=== PATIENT | female | born 1945 | race Caucasian/White ===

== ENCOUNTER 2018-07-01 12:03 | Emergency (ER) | payer MEDICARE, OTHER ==
[~2018-07-01] VITALS: Ht 160 cm; Wt 63.6 kg
[~2018-07-01 12:03] MED LIST: ATOR20TA66 PO; EFF25T PO; LISI-600 PO; LUBI8CAP PO; ONDA4TAB6 PO; PANT40TA4 PO
[2018-07-01 12:36] LABS: BASOPHILS % (AUTO) 0.3 % (0-1); EOSINOPHILS % (AUTO) 0.2 % (0-6); HEMOGLOBIN 14.3 g/dl (12.0-16.0); LYMPHOCYTES # (AUTO) 1.6 X10'3 (1.1-4.8); LYMPHOCYTES % (AUTO) 15.8 % (21-51); MEAN CORPUSCULAR HEMOGLOBIN 29.6 PG (27.0-31.0); MEAN CORPUSCULAR HGB CONC 33.2 % (33.0-36.5); MEAN CORPUSCULAR VOLUME 89.1 FL (78-98); MEAN PLATELET VOLUME 7.6 FL (7.4-10.4); MONOCYTES # (AUTO) 0.6 X10'3 (0-0.9); MONOCYTES % (AUTO) 6.1 % (2-12); NEUTROPHILS % (AUTO) 77.6 % (42-75); PLATELET COUNT 265 X10'3 (140-440); RED BLOOD COUNT 4.82 X10'6 (4.20-5.60); RED CELL DISTRIBUTION WIDTH 13.1 % (11.5-14.5); WHITE BLOOD COUNT 10.4 X10'3 (4.5-11.0)
[2018-07-01 12:47] LABS: PROTHROMBIN TIME 10.1 SECONDS (9.0-12.0)
[2018-07-01 12:59] LABS: ALANINE AMINOTRANSFERASE 22 U/L (12-78); ALKALINE PHOSPHATASE 89 IU/L (46-116); AMYLASE 76 U/L (25-115); ANION GAP 11 (8-16); ASPARTATE AMINO TRANSFERASE 20 U/L (10-37); BILIRUBIN,TOTAL 0.3 MG/DL (0.1-1.0); BLOOD UREA NITROGEN 24 MG/DL (7-18); BUN/CREATININE RATIO 21.6 (6.6-38.0); CALCIUM 9.8 MG/DL (8.5-10.1); CHLORIDE 103 MMOL/L (99-107); CREATININE 1.11 MG/DL (0.40-0.90); GLUCOSE 124 MG/DL (70-104); LIPASE 285 U/L (73-393); POTASSIUM 4.6 MMOL/L (3.5-5.1); SODIUM 140 MMOL/L (135-145); TOTAL CARBON DIOXIDE 26.4 MMOL/L (24-32); TOTAL PROTEIN 7.9 G/DL (6.4-8.2); eGFR 48 ML/MIN
[2018-07-01 14:31] LABS: CLARITY,URINE CLEAR (Clear); COLOR,URINE YELLOW (Yellow); GLUCOSE, URINE NEGATIVE (Neg); KETONES,URINE 15 mg/dl (Neg); LEUKOCYTE ESTERASE ,URINE NEGATIVE (Neg); NITRITES, URINE NEGATIVE (Neg); OCCULT BLOOD,URINE NEGATIVE (Neg); PH,URINE 5.5 (4.8-8.0); PROTEIN,URINE NEGATIVE (Neg); UROBILINOGEN,URINE 0.2 E.U/dL (0.2-1.0)
[2018-07-01 14:32] LABS: UA COLLECTION TYPE CLN CATCH MIDSTREAM
[2018-07-01] MEDS ORDERED: ondansetron 4mg rapidly disintigrating tab PO ONE (14:50)
[2018-07-01] MEDS ORDERED: OMEP40CA37 PO (15:29)
[2018-07-01 15:42] VITALS: BP 141/74
[2018-07-01] MEDS ORDERED: ONDA8TAB6 PO (15:44)
== END 2018-07-01 15:50 | disposition home or self-care (01) ==
LOC: ER 12:04
DX: R10.84 Generalized abdominal pain (principal); R10.13 Epigastric pain; R11.0 Nausea; E78.00 Pure hypercholesterolemia, unspecified; G43.909 Migraine, unspecified, not intractable, without status migrainosus; Z88.0 Allergy status to penicillin; Z88.1 Allergy status to other antibiotic agents; Z88.6 Allergy status to analgesic agent; Z79.899 Other long term (current) drug therapy; Z90.49 Acquired absence of other specified parts of digestive tract; Z90.710 Acquired absence of both cervix and uterus; Z87.19 Personal history of other diseases of the digestive system
CPT/HCPCS: 36415; 74176; 80053; 81003; 82150; 83690; 84484; 85025; 85610; 93005; 99284

== ENCOUNTER 2022-02-16 10:30 | Outpatient (CLI) | payer MEDICARE, OTHER ==
[~2022-02-16 10:30] MED LIST changes: +BARIUM SULFATE 340 ML SUSP.RECON***PROCEDURE AREA ONLY**DONT ENTER PO ONE; -EFF25T PO; -LISI-600 PO; +LISI20TA28 PO; +ONDA8TAB6 PO; -PANT40TA4 PO; +PANT40TA54 PO; +VENL25TA48 PO
== END 2022-02-16 23:59 | disposition home or self-care (01) ==
LOC: RAD 10:30
PROVIDERS: ATTEND Nurse Practitioner
DX: K29.50 Unspecified chronic gastritis without bleeding (principal)
CPT/HCPCS: 74220

== ENCOUNTER 2023-07-10 20:56 | Emergency (ER) | payer MEDICARE, OTHER ==
[~2023-07-10] VITALS: Ht 160 cm; Wt 55.0 kg
[~2023-07-10 20:56] MED LIST changes: -BARIUM SULFATE 340 ML SUSP.RECON***PROCEDURE AREA ONLY**DONT ENTER PO ONE
[2023-07-10 22:15] LABS: BASOPHILS % (AUTO) 0.6 % (0-1); EOSINOPHILS % (AUTO) 0.2 % (0-6); HEMATOCRIT 35.1 % (35.0-45.0); HEMOGLOBIN 11.7 g/dl (12.0-16.0); LYMPHOCYTES # (AUTO) 1.2 X10'3 (1.1-4.8); LYMPHOCYTES % (AUTO) 16.1 % (21-51); MEAN CORPUSCULAR HEMOGLOBIN 30.2 PG (27.0-31.0); MEAN CORPUSCULAR HGB CONC 33.3 g/dL (33.0-36.5); MEAN CORPUSCULAR VOLUME 90.7 FL (78-98); MEAN PLATELET VOLUME 7.4 FL (7.4-10.4); MONOCYTES # (AUTO) 0.8 X10'3 (0-0.9); MONOCYTES % (AUTO) 10.4 % (2-12); NEUTROPHILS # (AUTO) 5.3 X10'3 (1.8-7.7); NEUTROPHILS % (AUTO) 72.7 % (42-75); PLATELET COUNT 185 X10'3 (140-440); RED BLOOD COUNT 3.87 X10'6 (4.20-5.60); WHITE BLOOD COUNT 7.3 X10'3 (4.5-11.0)
[2023-07-10 22:34] LABS: BILIRUBIN,URINE NEGATIVE (Neg); CLARITY,URINE CLEAR (Clear); COLOR,URINE YELLOW (Yellow); GLUCOSE, URINE NEGATIVE (Neg); KETONES,URINE 15 mg/dl (Neg); LEUKOCYTE ESTERASE ,URINE NEGATIVE (Neg); NITRITES, URINE NEGATIVE (Neg); OCCULT BLOOD,URINE NEGATIVE (Neg); PROTEIN,URINE NEGATIVE (Neg); UROBILINOGEN,URINE 0.2 E.U/dL (0.2-1.0)
[2023-07-10 22:34] LABS: ALANINE AMINOTRANSFERASE 19 U/L (12-78); ALBUMIN 3.8 G/DL (3.4-5.0); ALBUMIN/GLOBULIN RATIO 1.2 (1.1-1.5); ALKALINE PHOSPHATASE 63 IU/L (46-116); ANION GAP 10 (8-16); ASPARTATE AMINO TRANSFERASE 22 U/L (10-37); BILIRUBIN,TOTAL 0.4 MG/DL (0.1-1.0); BLOOD UREA NITROGEN 22 MG/DL (7-18); BUN/CREATININE RATIO 17.5 (10.0-20.0); CALCIUM 9.5 MG/DL (8.5-10.1); CHLORIDE 103 MMOL/L (99-107); CREATININE 1.26 MG/DL (0.40-0.90); GLUCOSE 116 MG/DL (70-104); POTASSIUM 4.1 MMOL/L (3.5-5.1); SODIUM 137 MMOL/L (135-145); TOTAL CARBON DIOXIDE 23.7 MMOL/L (24-32); TOTAL PROTEIN 7.1 G/DL (6.4-8.2); eCRCL 30 ML/MIN; eGFR 41 ML/MIN
[2023-07-10 22:37] LABS: UA COLLECTION TYPE CLN CATCH MIDSTREAM
[2023-07-10 22:44] LABS: LIPASE 63 U/L (16-77); PRO BRAIN NATRIURETIC PEPTIDE 363 PG/ML (0-450)
[2023-07-11] MEDS ORDERED: morphine 4 MG/ML inj SYRINge IV PRN
[2023-07-11] MEDS ORDERED: normal saline 1000ML IV soln IVB ONE
[2023-07-11] MEDS ORDERED: morphine 4 MG/ML inj SYRINge IV ONE (02:00)
[2023-07-11] MEDS ORDERED: ondansetron/PF 4mg/2ml inj IV ONE ×2 (02:00)
[2023-07-11] MEDS ORDERED: POLY17PO10 PO (04:30)
[2023-07-11 05:01] VITALS: BP 114/52; PULSE 58; RESP 16; TEMP 98.2; O2SAT 98
== END 2023-07-11 05:03 | disposition home or self-care (01) ==
LOC: ER 20:56
DX: K59.00 Constipation, unspecified (principal); E86.0 Dehydration
CPT/HCPCS: 36415; 71045; 74176; 80053; 81003; 83690; 83880; 84484; 85025; 93005; 96374; 96375; 99285; J2270; J2405; J7030

== ENCOUNTER 2023-08-07 19:44 | Inpatient (IN) | payer MEDICARE, OTHER ==
[~2023-08-07] VITALS: Ht 160 cm; Wt 53.5 kg
[2023-08-07 20:14] LABS: BASOPHILS % (AUTO) 0.3 % (0-1); EOSINOPHILS % (AUTO) 0.1 % (0-6); HEMATOCRIT 33.7 % (35.0-45.0); HEMOGLOBIN 11.6 g/dl (12.0-16.0); LYMPHOCYTES # (AUTO) 1.7 X10'3 (1.1-4.8); LYMPHOCYTES % (AUTO) 24.5 % (21-51); MEAN CORPUSCULAR HEMOGLOBIN 30.4 PG (27.0-31.0); MEAN CORPUSCULAR HGB CONC 34.3 g/dL (33.0-36.5); MEAN CORPUSCULAR VOLUME 88.7 FL (78-98); MEAN PLATELET VOLUME 7.3 FL (7.4-10.4); MONOCYTES # (AUTO) 0.6 X10'3 (0-0.9); MONOCYTES % (AUTO) 9.2 % (2-12); NEUTROPHILS # (AUTO) 4.6 X10'3 (1.8-7.7); NEUTROPHILS % (AUTO) 65.9 % (42-75); PLATELET COUNT 205 X10'3 (140-440); RED CELL DISTRIBUTION WIDTH 13.5 % (11.5-14.5)
[2023-08-07 20:27] LABS: ALANINE AMINOTRANSFERASE 21 U/L (12-78); ALBUMIN 3.8 G/DL (3.4-5.0); ALBUMIN/GLOBULIN RATIO 1.1 (1.1-1.5); ALKALINE PHOSPHATASE 80 IU/L (46-116); ANION GAP 12 (8-16); ASPARTATE AMINO TRANSFERASE 22 U/L (10-37); BILIRUBIN,TOTAL 0.6 MG/DL (0.1-1.0); BLOOD UREA NITROGEN 21 MG/DL (7-18); BUN/CREATININE RATIO 16.3 (10.0-20.0); CALCIUM 9.3 MG/DL (8.5-10.1); CHLORIDE 105 MMOL/L (99-107); CREATININE 1.29 MG/DL (0.40-0.90); GLUCOSE 122 MG/DL (70-104); LIPASE 49 U/L (16-77); POTASSIUM 3.5 MMOL/L (3.5-5.1); SODIUM 139 MMOL/L (135-145); TOTAL CARBON DIOXIDE 22.2 MMOL/L (24-32); TOTAL PROTEIN 7.3 G/DL (6.4-8.2); eGFR 40 ML/MIN
[2023-08-07] MEDS ORDERED: ondansetron 4mg rapidly disintigrating tab PO ONE (23:15)
[2023-08-07] MEDS ORDERED: mag hydrox/Alum hydrox/simeth 30ml oral suspension PO ONE (23:15)
[2023-08-07] MEDS ORDERED: LIDOcaine Viscous 15ml cup MM ONE (23:15)
[2023-08-07] MEDS ORDERED: famotidine 20mg tablet PO ONE (23:20)
[2023-08-07] MEDS ORDERED: aspirin 325mg tablet PO ONE (23:50)
[2023-08-07] MEDS ORDERED: normal saline 1000ml 1,000 ML IV ONE (23:50)
[2023-08-07] MEDS ORDERED: fentaNYL/PF 50MCG/1 ML 2ML syringe IV ONE (23:55)
[2023-08-07] MEDS ORDERED: iohexol 350MG/ML 100ml bottle IV ONE (23:59)
[2023-08-08 01:00] LABS: BILIRUBIN,URINE NEGATIVE (Neg); CLARITY,URINE CLEAR (Clear); COLOR,URINE YELLOW (Yellow); GLUCOSE, URINE NEGATIVE (Neg); KETONES,URINE >=80 mg/dl (Neg); LEUKOCYTE ESTERASE ,URINE TRACE (Neg); NITRITES, URINE NEGATIVE (Neg); OCCULT BLOOD,URINE NEGATIVE (Neg); PROTEIN,URINE NEGATIVE (Neg); UROBILINOGEN,URINE 0.2 E.U/dL (0.2-1.0)
[2023-08-08 01:03] LABS: UA COLLECTION TYPE CLN CATCH MIDSTREAM
[2023-08-08 01:08] LABS: BACTERIA,URINE FEW /HPF (Neg); RBC,URINE 0-2 /HPF (0-2); SQUAMOUS EPITHELIAL CELL,UR FEW /LPF (FEW)
[2023-08-08] MEDS ORDERED: potassium Cl 20 mEq SR tablet PO PRN ×2 (01:20)
[2023-08-08] MEDS ORDERED: magnesium 2GM in 50ml NS 50 ML IV PRN (01:20)
[2023-08-08] MEDS: normal saline 1000ml 1,000 ML IV SCH ×2 (01:20→11:20)
[2023-08-08] MEDS ORDERED: magnesium Cl slow-release 64mg tablet PO PRN (01:20)
[2023-08-08] MEDS ORDERED: magnesium 4gm in 100ml NS 100 ML IV PRN (01:20)
[2023-08-08] MEDS ORDERED: potassium Cl 40MEQ/1/2NS 520ml 520 ML IV PRN (01:20)
[2023-08-08] MEDS ORDERED: morphine 2 MG/ML inj. syringe IV PRN ×2 (01:20)
[2023-08-08 07:24] VITALS: BP 141/53; PULSE 59; RESP 20; TEMP 98.1; O2SAT 100
[2023-08-08] MEDS: K and/or MAG REPLACEMENT MC SCH ×2 (08:00→20:00)
[2023-08-08] MEDS: pantoprazole 40 MG vial IV SCH ×2 (08:23→19:55)
[2023-08-08 10:00] VITALS: BP 119/56; PULSE 63; RESP 15; TEMP 97.9; O2SAT 96
[2023-08-08 10:28] LABS: MAGNESIUM 2.1 MG/DL (1.5-2.4); POTASSIUM 4.2 MMOL/L (3.5-5.1)
[2023-08-08] MEDS: ondansetron/PF 4mg/2ml inj IV PRN ×2 (10:57→17:03)
[2023-08-08] MEDS ORDERED: HYDROcodone/acetaminophen 5mg/325mg tablet PO PRN (15:05)
[2023-08-08] MEDS: HYDROcodone/acetaminophen 10/325mg tab PO PRN (15:39)
[2023-08-08 18:00] VITALS: BP 136/48; PULSE 66; RESP 15; TEMP 97.5; O2SAT 98
[2023-08-08 22:00] VITALS: BP 96/64; PULSE 60; RESP 14; TEMP 97.7; O2SAT 98
[2023-08-09] MEDS: normal saline 1000ml 1,000 ML IV SCH ×3 (00:25→17:20)
[2023-08-09 02:00] VITALS: BP 119/47; PULSE 56; RESP 16; TEMP 97.9; O2SAT 100
[2023-08-09 06:00] VITALS: BP 156/74; PULSE 61; RESP 18; TEMP 96.5; O2SAT 99
[2023-08-09 07:09] LABS: BASOPHILS % (AUTO) 0.2 % (0-1); EOSINOPHILS % (AUTO) 0.5 % (0-6); HEMATOCRIT 29.5 % (35.0-45.0); LYMPHOCYTES # (AUTO) 1.6 X10'3 (1.1-4.8); LYMPHOCYTES % (AUTO) 24.7 % (21-51); MEAN CORPUSCULAR HEMOGLOBIN 30.5 PG (27.0-31.0); MEAN CORPUSCULAR HGB CONC 34.1 g/dL (33.0-36.5); MEAN CORPUSCULAR VOLUME 89.6 FL (78-98); MEAN PLATELET VOLUME 7.5 FL (7.4-10.4); MONOCYTES # (AUTO) 0.7 X10'3 (0-0.9); MONOCYTES % (AUTO) 11.8 % (2-12); NEUTROPHILS % (AUTO) 62.8 % (42-75); PLATELET COUNT 142 X10'3 (140-440); RED BLOOD COUNT 3.29 X10'6 (4.20-5.60); RED CELL DISTRIBUTION WIDTH 13.3 % (11.5-14.5); WHITE BLOOD COUNT 6.3 X10'3 (4.5-11.0)
[2023-08-09] MEDS: pantoprazole 40 MG vial IV SCH ×2 (07:10→20:55)
[2023-08-09 07:23] LABS: ALBUMIN 2.9 G/DL (3.4-5.0); ANION GAP 7 (8-16); BLOOD UREA NITROGEN 11 MG/DL (7-18); BUN/CREATININE RATIO 11.2 (10.0-20.0); CALCIUM 8.3 MG/DL (8.5-10.1); CHLORIDE 111 MMOL/L (99-107); CREATININE 0.98 MG/DL (0.40-0.90); GLUCOSE 81 MG/DL (70-104); MAGNESIUM 1.9 MG/DL (1.5-2.4); POTASSIUM 3.4 MMOL/L (3.5-5.1); SODIUM 141 MMOL/L (135-145); TOTAL CARBON DIOXIDE 22.9 MMOL/L (24-32); eCRCL 39 ML/MIN; eGFR 55 ML/MIN
[2023-08-09] MEDS: K and/or MAG REPLACEMENT MC SCH ×2 (08:00→20:00)
[2023-08-09] MEDS: HYDROcodone/acetaminophen 10/325mg tab PO PRN ×2 (09:16→19:56)
[2023-08-09 10:00] VITALS: BP 117/55; PULSE 63; RESP 16; TEMP 97.5; O2SAT 98
[2023-08-09 12:37] LABS: BILIRUBIN,URINE NEGATIVE (Neg); CLARITY,URINE CLEAR (Clear); COLOR,URINE STRAW (Yellow); GLUCOSE, URINE NEGATIVE (Neg); KETONES,URINE TRACE mg/dl (Neg); LEUKOCYTE ESTERASE ,URINE NEGATIVE (Neg); NITRITES, URINE NEGATIVE (Neg); OCCULT BLOOD,URINE NEGATIVE (Neg); PH,URINE 5.5 (4.8-8.0); PROTEIN,URINE NEGATIVE (Neg); UROBILINOGEN,URINE 0.2 E.U/dL (0.2-1.0)
[2023-08-09 12:43] LABS: UA COLLECTION TYPE NON-SPECIFIED
[2023-08-09] MEDS: ondansetron/PF 4mg/2ml inj IV PRN ×2 (14:42→20:55)
[2023-08-09 19:00] VITALS: BP 143/53; PULSE 60; RESP 16; TEMP 97.5; O2SAT 100
[2023-08-09 22:00] VITALS: BP 95/50; PULSE 66; RESP 13; TEMP 98.2; O2SAT 99
[2023-08-10] VITALS (15 sets, daily range): BP systolic 111–173; BP diastolic 40–83; PULSE 59–80; RESP 14–20; TEMP 97.6–98.6; O2SAT 90–100
[2023-08-10] MEDS: normal saline 1000ml 1,000 ML IV SCH ×3 (03:37→20:46)
[2023-08-10] MEDS: ondansetron/PF 4mg/2ml inj IV PRN ×2 (03:41→10:43)
[2023-08-10 06:09] LABS: BASOPHILS % (AUTO) 0.3 % (0-1); EOSINOPHILS # (AUTO) 0.1 X10'3 (0-0.9); EOSINOPHILS % (AUTO) 1.1 % (0-6); HEMATOCRIT 30.6 % (35.0-45.0); HEMOGLOBIN 10.2 g/dl (12.0-16.0); LYMPHOCYTES # (AUTO) 1.6 X10'3 (1.1-4.8); LYMPHOCYTES % (AUTO) 25.4 % (21-51); MEAN CORPUSCULAR HEMOGLOBIN 30.2 PG (27.0-31.0); MEAN CORPUSCULAR HGB CONC 33.5 g/dL (33.0-36.5); MEAN CORPUSCULAR VOLUME 90.2 FL (78-98); MEAN PLATELET VOLUME 7.6 FL (7.4-10.4); MONOCYTES # (AUTO) 0.7 X10'3 (0-0.9); MONOCYTES % (AUTO) 11.6 % (2-12); NEUTROPHILS # (AUTO) 3.9 X10'3 (1.8-7.7); NEUTROPHILS % (AUTO) 61.6 % (42-75); PLATELET COUNT 140 X10'3 (140-440); RED BLOOD COUNT 3.39 X10'6 (4.20-5.60); RED CELL DISTRIBUTION WIDTH 13.4 % (11.5-14.5); WHITE BLOOD COUNT 6.3 X10'3 (4.5-11.0)
[2023-08-10 06:18] LABS: ANION GAP 10 (8-16); BLOOD UREA NITROGEN 11 MG/DL (7-18); CALCIUM 8.3 MG/DL (8.5-10.1); CHLORIDE 111 MMOL/L (99-107); GLUCOSE 65 MG/DL (70-104); POTASSIUM 3.3 MMOL/L (3.5-5.1); SODIUM 143 MMOL/L (135-145); TOTAL CARBON DIOXIDE 22.1 MMOL/L (24-32); eCRCL 38 ML/MIN; eGFR 53 ML/MIN
[2023-08-10] MEDS: pantoprazole 40 MG vial IV SCH ×2 (06:47→21:16)
[2023-08-10] MEDS: HYDROcodone/acetaminophen 10/325mg tab PO PRN ×2 (06:48→17:17)
[2023-08-10] MEDS: K and/or MAG REPLACEMENT MC SCH ×2 (08:00→20:00)
[2023-08-10] MEDS ORDERED: LIDOcaine Viscous 15ml cup ONE (15:09)
[2023-08-10] MEDS ORDERED: MIDAZolam 1 MG/ML 5ML VIAL ONE (15:09)
[2023-08-10] MEDS ORDERED: fentaNYL/PF 50MCG/1 ML 2ML syringe ONE (15:09)
[2023-08-10] MEDS ORDERED: hydrALAZINE 20mg/ml inj. IV PRN (17:10)
[2023-08-11 05:53] LABS: ALBUMIN 2.9 G/DL (3.4-5.0); ANION GAP 11 (8-16); BLOOD UREA NITROGEN 17 MG/DL (7-18); BUN/CREATININE RATIO 16.2 (10.0-20.0); CALCIUM 8.4 MG/DL (8.5-10.1); CHLORIDE 110 MMOL/L (99-107); CREATININE 1.05 MG/DL (0.40-0.90); GLUCOSE 100 MG/DL (70-104); MAGNESIUM 1.9 MG/DL (1.5-2.4); POTASSIUM 3.7 MMOL/L (3.5-5.1); SODIUM 141 MMOL/L (135-145); TOTAL CARBON DIOXIDE 20.3 MMOL/L (24-32); eCRCL 36 ML/MIN; eGFR 51 ML/MIN
[2023-08-11 06:00] VITALS: BP 136/49; PULSE 66; RESP 17; TEMP 97.4; O2SAT 93
[2023-08-11 06:07] LABS: BASOPHILS % (AUTO) 0.4 % (0-1); EOSINOPHILS # (AUTO) 0.1 X10'3 (0-0.9); HEMATOCRIT 31.1 % (35.0-45.0); HEMOGLOBIN 10.5 g/dl (12.0-16.0); LYMPHOCYTES # (AUTO) 1.4 X10'3 (1.1-4.8); MEAN CORPUSCULAR HEMOGLOBIN 30.3 PG (27.0-31.0); MEAN CORPUSCULAR HGB CONC 33.8 g/dL (33.0-36.5); MEAN CORPUSCULAR VOLUME 89.6 FL (78-98); MEAN PLATELET VOLUME 7.7 FL (7.4-10.4); MONOCYTES # (AUTO) 0.7 X10'3 (0-0.9); MONOCYTES % (AUTO) 11.3 % (2-12); NEUTROPHILS # (AUTO) 4.1 X10'3 (1.8-7.7); NEUTROPHILS % (AUTO) 64.3 % (42-75); PLATELET COUNT 144 X10'3 (140-440); RED BLOOD COUNT 3.47 X10'6 (4.20-5.60); RED CELL DISTRIBUTION WIDTH 13.5 % (11.5-14.5); WHITE BLOOD COUNT 6.3 X10'3 (4.5-11.0)
[2023-08-11] MEDS: K and/or MAG REPLACEMENT MC SCH (07:05)
[2023-08-11 08:00] VITALS: RESP 15; O2SAT 99
[2023-08-11] MEDS: HYDROcodone/acetaminophen 10/325mg tab PO PRN (08:25)
[2023-08-11] MEDS: pantoprazole 40 MG vial IV SCH (08:26)
[2023-08-11] MEDS: normal saline 1000ml 1,000 ML IV SCH (09:40)
== END 2023-08-11 14:45 | disposition home or self-care (01) | DRG 391 ==
LOC: ER 19:44 → ED HOLD 08-08 01:22 → ORTHO 4S 08-08 07:25
PROVIDERS: ADMIT Internal Medicine; ATTEND Internal Medicine
PROC: BW251ZZ Computerized Tomography (CT Scan) of Chest, Abdomen and Pelvis using Low Osmolar Contrast (ICD-10-PCS; principal; 2023-08-08)
PROC: 0DB68ZZ Excision of Stomach, Via Natural or Artificial Opening Endoscopic (ICD-10-PCS; 2023-08-10)
PROC: 0DB68ZX Excision of Stomach, Via Natural or Artificial Opening Endoscopic, Diagnostic (ICD-10-PCS; 2023-08-10)
DX: K29.00 Acute gastritis without bleeding (principal); I21.A1 Myocardial infarction type 2; N17.0 Acute kidney failure with tubular necrosis; K86.1 Other chronic pancreatitis; K21.9 Gastro-esophageal reflux disease without esophagitis; I10 Essential (primary) hypertension; E78.00 Pure hypercholesterolemia, unspecified; G43.909 Migraine, unspecified, not intractable, without status migrainosus; Z90.710 Acquired absence of both cervix and uterus; Z90.49 Acquired absence of other specified parts of digestive tract; Z88.1 Allergy status to other antibiotic agents; K29.50 Unspecified chronic gastritis without bleeding; Z88.5 Allergy status to narcotic agent; Z88.0 Allergy status to penicillin; Z79.899 Other long term (current) drug therapy; Z87.891 Personal history of nicotine dependence; E86.0 Dehydration
CPT/HCPCS: 36415; 43239; 43251; 70450; 71045; 71275; 74177; 80048; 80053; 81001; 81003; 83690; 83735; 84132; 84484; 85025; 87081; 87088; 88305; 88342; 93005; 93306; 99152; 99285; A4620; A4649; A6258; C1889; C9113; G0378; J0360; J2250; J2405; J3010; J3480; J7030; Q9967

== ENCOUNTER 2024-12-04 13:49 | Emergency (ER) | payer MEDICARE, OTHER ==
[~2024-12-04] VITALS: Ht 160 cm; Wt 54.6 kg
[~2024-12-04 13:49] MED LIST changes: -ATOR20TA66 PO; +CETI10CA PO; +HYDR-3973 PO; -LISI20TA28 PO; -LUBI8CAP PO; +METO5TAB85 PO; -ONDA8TAB6 PO; -VENL25TA48 PO; +VENL75CA61 PO
[2024-12-04 13:59] VITALS: TEMP 98
--- NOTE | 2024-12-04 16:36 | Physician Documentation ---
History of Present Illness ~ Chief Complaint: Back Pain Stated Complaint: ABD AND BACK PAIN MED REQUEST Time Seen by MD: 15:47 Primary Medical Doctor: deven barbour [facility] This is an 79-year-old female who presents back to the emergency department for continued epigastric pain that radiates to her back worse after meals, patient reports that she was hospitalized for the same and discharge with [place] which helps the pain, patient additionally reports that she has followed up with her primary care provider though primary care provider did not prescribe her anything for pain. Review of previous records indicate patient was to follow up with primary care provider and specialist at [facility] for possible treatment of chronic superior mesenteric artery ischemia syndrome, patient reports that she did see the specialist at [facility] yesterday and they reported that her pain was not coming from her bowels and prescribed her gabapentin for pain. Patient reports she has not picked up the gabapentin and started this medication. Patient reports no fever, vomiting, or diarrhea. Patient reports symptoms are unchanged from her previous visit. Medication Reconciliation Allergies: Coded Allergies: Erythromycin Lactobionate (Verified Allergy, Unknown, 12/04/24) Penicillins (Verified Allergy, Unknown, 12/04/24) codeine (Verified Allergy, Unknown, 12/04/24) TOLERATED HYDROMORPHONE 10/2024 Scheduled Cetirizine Hcl (Zyrtec), 1 CAP PO DAILY, (Reported) Pantoprazole Sodium (Pantoprazole Sodium), 40 MG PO BKF Venlafaxine Hcl (Venlafaxine Hcl Er), 1 CAP PO DAILY, (Reported) Scheduled PRN Hydrocodone Bit/Acetaminophen (Hydrocodone-Apap 10-325 Tablet), 1 TAB PO TID PRN PRN for pain Metoclopramide HCl (Reglan), 1 TAB PO Q8H PRN for nausea/vomiting Ondansetron Hcl (Zofran), 1 TABLET PO Q8H PRN for NAUSEA Past Medical History Past Medical History: Migraine, High Cholesterol, Pancreatitis Past Surgical History: cholecystectomy, hysterectomy Patient History: FH: lung cancer (Sister) Alcohol Use: None Drug Use: none Lives with: Spouse Lives In: Home Occupation: retired Review of Systems ROS Chronic upper abdominal pain and back pain as stated above in the HPI, otherwise all systems are reviewed and negative. Physical Exam Physical Exam Vital Signs: Temperature: 98.0, Source: Temporal, Heart Rate: 64, Respiratory Rate: 18, BP: 173/78, Pulse Oximetry: 99, Weight: 54.600 Physical Exam VITALS: Reviewed and as above. GENERAL: Alert, nontoxic appearing, no apparent distress. RESPIRATORY: No increased work of breathing, no respiratory distress, speaking in full clear sentences BACK: Left CVA tender percussion and palpation GI: Nondistended, soft, epigastric tenderness, no rebound, no guarding Progress Results/Orders Results/Orders Completed Orders - SUE FREY Gabapentin Capsule (Neurontin Capsule) (12/04/24 16:55) Medications Received in ER Medications (Trade) Dose Ordered Sig/Alberto Route PRN Reason Start Time Stop Time Status Last Admin Dose Admin (Neurontin capsule) 100 mg ONCE ONCE PO 12/04/24 16:55 12/04/24 16:56 DC 12/04/24 17:06 100 MG Vital Signs 12/04/24 12/04/24 13:59 17:14 Temp 98.0 Pulse 64 65 Resp 18 16 B/P (MAP) 173/78 168/71 Pulse Ox 99 97 Medical Decision Making Findings This 79-year-old female with chronic epigastric and back pain presented to the emergency department requesting a refill of her [place] prescription, patient reported epigastric pain and back pain worse after meals, patient reports this has been going on for some time and review of records indicate patient has been seen multiple times for this concern and received multiple workups including a hospitalization. Patient did follow up with the specialists yesterday at [facility] and patient reported that specialist did not believe her symptoms were from her bowels and patient was prescribed gabapentin for pain management. Patient additionally reports that her pain is currently controlled with her remaining [place] prescription and that she took a [place] approximately 2 hours prior to arrival though she is down to her last pill and needing a refill. Discussed with the patient the fact that her primary care provider and a specialist had seen her and neither had prescribed her continued [place] and that I felt it was inappropriate to prescribe [place] for chronic pain from the emergency department especially as her primary care and specialist are not choosing this option for her continued pain management. Patient advised that she needs to start taking the prescribed gabapentin and a dose of gabapentin was provided in the emergency department. As patient's symptoms have not significantly changed from previously being seen and was seen yesterday by a specialist no further imaging or labs were indicate a, additionally was reassuring patient reported she has had a recent operating endoscopy and colonoscopy without significant finding. Patient advised that she should also restart taking her prescribed Protonix as this may help with her epigastric pain. Patient's physical exam was benign and vital signs stable she is appropriate for outpatient follow up. 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 Start taking your prescribed Protonix again. Please follow up with the primary care provider for referral to GI specialist, attached is our on-call GI specialists number. Please return to the emergency department for any new or worsening concerning symptoms including but not limited to worsening pain, persistent vomiting, persistent diarrhea, or if you have blood in your vomit or stools. Referrals: NO PRIMARY CARE PROVIDER (PCP) JOSE LUIS MCPHERSON MD Education Educated: Patient Educated regarding: diagnosis, treatment, prognosis, need for follow up Signature Scribe Signature: No scribe Attestation: The note accurately reflects work and decisions made by me.VASYL Newberry 12/04/24 22:42 SUE FREY December 04, 2024 16:36
[2024-12-04] MEDS: gabapentin 100mg capsule PO ONE (17:06)
[2024-12-04 17:14] VITALS: BP 168/71; PULSE 65; RESP 16; O2SAT 97
== END 2024-12-04 17:16 | disposition home or self-care (01) ==
LOC: ER 13:50
DX: R10.13 Epigastric pain (principal); E78.00 Pure hypercholesterolemia, unspecified; Z88.0 Allergy status to penicillin; Z88.5 Allergy status to narcotic agent; Z88.8 Allergy status to other drugs, medicaments and biological substances; Z90.49 Acquired absence of other specified parts of digestive tract; Z90.710 Acquired absence of both cervix and uterus
CPT/HCPCS: 99283

== ENCOUNTER 2024-12-27 08:25 | Emergency (ER) | payer MEDICARE, OTHER ==
[~2024-12-27] VITALS: Ht 160 cm; Wt 56.8 kg
[~2024-12-27 08:25] MED LIST changes: -HYDR-3973 PO
[2024-12-27 08:30] VITALS: TEMP 98
--- NOTE | 2024-12-27 08:38 | ELECTROCARDIOGRAPH REPORT ---
[facility] Test Date: 2024-12-27 Test Time: 08:28:04 Pat Name: CELINA NIXON Department: EMERGENCY ROOM Room: Gender: F Finance Clerk: VERONICA : 1945 Requested By: CELIO CONTEH Order Number: [id number] Reading MD: Measurements Intervals [place] Rate: 64 P: 98 LA: 162 QRS: 109 QRSD: 95 T: 87 QT: 425 QTc: 439 Interpretive Statements Sinus rhythm Anterolateral infarct, old Baseline wander in lead(s) V3 Please click the below link to view image of tracing.
[2024-12-27 09:32] LABS: BASOPHILS % (AUTO) 0.2 % (0-1); EOSINOPHILS % (AUTO) 0.4 % (0-6); HEMATOCRIT 41.5 % (35.0-45.0); HEMOGLOBIN 13.7 g/dl (12.0-16.0); LYMPHOCYTES # (AUTO) 1.4 X10'3 (1.1-4.8); LYMPHOCYTES % (AUTO) 23.5 % (21-51); MEAN CORPUSCULAR VOLUME 87.8 FL (78-98); MEAN PLATELET VOLUME 7.3 FL (7.4-10.4); MONOCYTES # (AUTO) 0.5 X10'3 (0-0.9); NEUTROPHILS # (AUTO) 3.9 X10'3 (1.8-7.7); NEUTROPHILS % (AUTO) 66.9 % (42-75); PLATELET COUNT 285 X10'3 (140-440); RED BLOOD COUNT 4.73 X10'6 (4.20-5.60); RED CELL DISTRIBUTION WIDTH 13.7 % (11.5-14.5); WHITE BLOOD COUNT 5.9 X10'3 (4.5-11.0)
[2024-12-27 09:42] LABS: ALBUMIN 3.9 G/DL (3.4-5.0); ANION GAP 12 (8-16); BLOOD UREA NITROGEN 17 MG/DL (7-18); BUN/CREATININE RATIO 12.7 (10.0-20.0); CALCIUM 9.6 MG/DL (8.5-10.1); CHLORIDE 107 MMOL/L (99-107); CREATININE 1.34 MG/DL (0.40-0.90); GLUCOSE 102 MG/DL (70-104); POTASSIUM 4.3 MMOL/L (3.5-5.1); PRO BRAIN NATRIURETIC PEPTIDE 189 PG/ML (0-450); SODIUM 146 MMOL/L (135-145); eCRCL 27 ML/MIN; eGFR 38 ML/MIN
[2024-12-27] MEDS ORDERED: iohexol 300mg/ml 100ml inj. ONE (09:50)
[2024-12-27] MEDS ORDERED: iohexol 350MG/ML 100ml bottle IV ONE (09:51)
[2024-12-27] MEDS: ondansetron/PF 4mg/2ml inj IV ONE (09:53)
[2024-12-27] MEDS: normal saline 500ml IV soln 500 ML IV SCH (09:54)
--- NOTE | 2024-12-27 10:25 | Physician Documentation ---
History of Present Illness ~ Chief Complaint: Chest Pain Stated Complaint: SOB/NV Time Seen by MD: 08:53 Primary Medical Doctor: chris holcomb HPI 79-year-old female who presents to the emergency department with recurrent abdominal pain, pain has been ongoing for three days has a history of multiple ER visits for the same pain according to the patient and , patient notes she had some chest discomfort today as well which is why she came to the hospital, they have already had significant evaluations at multiple hospitals including [facility], [facility] and [facility] for this abdominal pain, due to the patient's poor overall health she reports that she has been declined surgical intervention because of risk of harm to herself. She is requesting nausea medications and pain meds. Timing/Duration: weeks Quality/Severity: severe Pain Location: abdomen Medication Reconciliation Allergies: Coded Allergies: Erythromycin Lactobionate (Verified Allergy, Unknown, 12/27/24) Penicillins (Verified Allergy, Unknown, 12/27/24) codeine (Verified Allergy, Unknown, 12/27/24) TOLERATED HYDROMORPHONE 10/2024 Scheduled Cetirizine Hcl (Zyrtec), 1 CAP PO DAILY, (Reported) Pantoprazole Sodium (Pantoprazole Sodium), 40 MG PO BKF Venlafaxine Hcl (Venlafaxine Hcl Er), 1 CAP PO DAILY, (Reported) Scheduled PRN Metoclopramide HCl (Reglan), 1 TAB PO Q8H PRN for nausea/vomiting Ondansetron Hcl (Zofran), 1 TABLET PO Q8H PRN for NAUSEA Past Medical History Past Medical History: Migraine, High Cholesterol, Pancreatitis Past Surgical History: cholecystectomy, hysterectomy Patient History: FH: lung cancer (Sister) Alcohol Use: None Drug Use: none Lives with: Spouse Lives In: Home Occupation: retired Review of Systems All Other Systems at this time: Reviewed and Negative Constitutional: Reports: see HPI Eyes: Reports: no symptoms reported ENT: Reports: no symptoms reported Respiratory: Reports: no symptoms reported Cardiovascular: Reports: see HPI, chest pain Gastrointestinal: Reports: abdominal pain, nausea Genitourinary: Reports: no symptoms reported Physical Exam Vital Signs: RN Vital Signs have been reviewed: Yes, Temperature: 98.0, Source: Temporal, Heart Rate: 57, Respiratory Rate: 16, BP: 149/76, Pulse Oximetry: 100, Weight: 56.820 Oxygen Flow Rate: 0 Pulse Oximetry Reflects: adequate oxygenation General Appearance: alert, ill-appearing, mild distress EENT: normal ENT inspection, moist mucous membranes Neck: normal inspection, full range of motion, supple Respiratory: lungs clear, normal breath sounds, no respiratory distress Chest: no accessory muscle use; No: retractions Cardiovascular: normal peripheral pulses, regular rate, rhythm, no edema, no JVD Gastrointestinal: tenderness Gastrointestinal Patient has right lower quadrant abdominal tenderness with guarding without mass, bowel sounds are positive but decreased Extremities: normal inspection, no calf tenderness Neurologic: oriented x4, racing board marker II-XII nml as tested Psychiatric: anxiety Progress Results/Orders Results/Orders Orders - CELIO CONTEH DO Chest,Single View (12/27/24 08:36) Monitor (12/27/24 08:36) Saline Lock (12/27/24 08:36) Oxygen (12/27/24 08:36) Hs Troponin I W Calculations (12/27/24 10:36) Hs Troponin I W Calculations (12/27/24 11:36) Cta Abdomen Pelvis (12/27/24 09:05) Urinalysis (12/27/24 09:07) Normal Saline 500ml Iv Soln (Sodium Chlo (12/27/24 09:25) Completed Orders - CELIO CONTEH DO Chest,Single View (12/27/24 08:36) Cbc/Diff (12/27/24 08:36) BMP (12/27/24 08:36) PBNP (12/27/24 08:36) Electrocardiogram (12/27/24 08:36) Hs Troponin I W Calculations (12/27/24 08:36) LA (12/27/24 09:05) Cta Abdomen Pelvis (12/27/24 09:05) Ondansetron Inj. (Zofran 4mg/2ml Vial) (12/27/24 09:25) Iohexol 300mg/Ml 100ml Inj. (Omnipaque-3 (12/27/24 09:50) Iohexol 350mg/Ml 100ml (Omnipaque 350mg/ (12/27/24 09:51) Medications Received in ER Medications (Trade) Dose Ordered Sig/Alberto Route PRN Reason Start Time Stop Time Status Last Admin Dose Admin (Zofran 4mg/2ml vial) 4 mg ONCE ONCE IV 12/27/24 09:25 12/27/24 09:26 DC 12/27/24 09:53 4 MG Sodium Chloride 500 ml @ 250 mls/hr Q2H IV 12/27/24 09:25 12/27/24 09:54 250 MLS/HR Vital Signs 12/27/24 12/27/24 12/27/24 08:30 09:30 10:38 Temp 98.0 Pulse 65 57 Resp 16 B/P (MAP) 154/59 149/76 (100) Pulse Ox 100 100 100 O2 Delivery Room Air* O2 Flow Rate 0 0 FiO2 N/A Laboratory Tests Test 12/27/24 09:01 12/27/24 11:10 White Blood Count 5.9 Red Blood Count 4.73 Hemoglobin 13.7 Hematocrit 41.5 Mean Corpuscular Volume 87.8 Mean Corpuscular Hemoglobin 29.0 Mean Corpuscular Hemoglobin Concent 33.0 Red Cell Distribution Width 13.7 Platelet Count 285 Mean Platelet Volume 7.3 L Neutrophils (%) (Auto) 66.9 Lymphocytes (%) (Auto) 23.5 Monocytes (%) (Auto) 9.0 Eosinophils (%) (Auto) 0.4 Basophils (%) (Auto) 0.2 Neutrophils # (Auto) 3.9 Lymphocytes # (Auto) 1.4 Monocytes # (Auto) 0.5 Eosinophils # (Auto) 0.0 Basophils # (Auto) 0.0 CBC Comment Sodium Level 146 H Potassium Level 4.3 Chloride Level 107 Carbon Dioxide Level 27.0 Anion Gap 12 Blood Urea Nitrogen 17 Creatinine 1.34 H Estimated GFR/1.73 m2 38 BUN/Creatinine Ratio 12.7 Glucose Level 102 Lactic Acid Level 0.9 Calcium Level 9.6 Troponin I High Sensitivity 40 Pro-B-Type Natriuretic Peptide 189 Albumin 3.9 Chemistry Comments Re-Evaluation Re-Evaluation : Progress 11:40 a.m. patient re-evaluated reviewed CT, had patient's symptoms seemed to have improved, discussed Linzess for her IBS, there is some thickening on CT that is likely inflammatory in nature as the patient has a normal white count and no evidence of fever I do not suspect she has an infectious colitis at this time, urged the patient to follow up with Dr. Bennett her [facility] parquetry layer in addition we discussed the patient's acid reflux in her brash taste, she is to continue with her PPI and H2 danette, she has a Zofran at home, Bentyl will be prescribed as well and a refill of Zofran, recommend urgent follow up with her GI specialist for her chronic abdominal pain. Return to the ER for any bloody stools fevers or worsening symptoms EKG/XRAY/CT/US/VASC/MRI EKG : Additional Comment Sinus rhythm rate of 64 low voltage normal axis anterior lateral infarct age undetermined, abnormal EKG. Chest X-Ray : Additional Comments [address] [facility] [address] DIAGNOSTIC RADIOLOGY Patient: CELINA NIXON Medical Record: [id number] [facility] : 1945, Age: 79 Sex: Female Location: ER Patient Status: [facility] ER Service Date/Time: 12/27/24835 Ordering Physician: CELIO CONTEH DO Exam: CHEST,SINGLE VIEW EXAM: DI CHEST,SINGLE VIEW HISTORY: CP COMPARISON: DI CHEST,SINGLE VIEW on DOS: 08/07/23, DI CHEST,SINGLE VIEW on DOS: 07/10/23, CT scan of the chest dated 08/08/2023. TECHNIQUE: Portable upright AP view of the chest was performed. FINDINGS: No pneumothorax, consolidative infiltrates, or pulmonary edema. Emphysematous changes are better characterized on prior CT scan. The heart is not enlarged.. The aortic arch is calcific. There is moderate thoracic degenerative disc disease. There is slight midthoracic dextroscoliosis. IMPRESSION: Emphysema without evidence of acute intrathoracic process. Electronically Signed by:RAFAT SYVLESTER MD Date & Time: 12/27/24 1114 Dictated by: RAFAT SYLVESTER MD Dictation date and time: 12/27/24914 Primary Care Provider: NO PRIMARY CARE PROVIDER cc: CELIO CONTEH DO ~ CT : Impression [facility] [address], [place], [place] - [address] CAT SCAN Patient: CELINA NIXON Medical Record: [id number] [facility] : 1945, Age: 79 Sex: Female Location: ER Patient Status: [facility] ER Service Date/Time: 12/27/24904 Ordering Physician: CELIO CONTEH DO Exam: CTA ABDOMEN PELVIS Procedure: CT CTA ABDOMEN PELVIS HISTORY: pain ischemic bowel Comparison Study: CT CTA ABDOMEN PELVIS on DOS: 11/03/24, CT CT ABDOMEN PELVIS W/ IV CONTRAST on DOS: 11/03/24, CT CTA ABDOMEN PELVIS on DOS: 12/27/23, CT CT ABDOMEN PELVIS on DOS: 12/24/23, CT CT ABDOMEN PELVIS on DOS: 07/11/23 Exam Date:12/27/2024 09:58 AM TECHNIQUE: CTA scanner volumetric data acquisition of abdomen and pelvis was obtained following intravenous administration of intravenous contrast without any reported adverse effects. Axial images were reconstructed and additional sagittal and coronal images were reformatted. arterial phase imaging were performed. Postprocessing was also performed on a Separate workstation. 3D images were performed on a dedicated workstation and reviewed for reporting. Radiation Dose : CT Dose: CTDI volume is 11.5 mGy. Dose-length product is 498.4 mGy*cm FINDINGS: Lung Bases: No acute or significant lung base finding. Normal heart size. No pleural or pericardial effusion. Liver: The liver is normal in size. No focal lesions. Normal hepatic vascular enhancement. Gallbladder and Biliary Tree: Gallbladder is surgically absent. Spleen: Unremarkable Pancreas: The pancreas is normal in appearance without focal lesions or abnormal enhancement. Adrenal Glands: Unremarkable Kidneys: Kidneys demonstrate normal symmetric enhancement without focal lesions, calculi or hydronephrosis. Bladder: Unremarkable Bowel: The stomach is grossly normal in appearance. Diverticulosis. Moderate volume colonic stool. Normal appendix is visualized in the right lower quadrant without findings of appendicitis. Ascites: Absent Lymphadenopathy: No mesenteric, retroperitoneal or periportal lymphadenopathy. Abdominal Wall and Mesentery: Unremarkable. Vasculature: The visualized abdominal aorta is normal in size and caliber. Abdominal and pelvic vessels demonstrate normal enhancement. Pelvic Organs: The uterus is surgically absent. Musculoskeletal: No aggressive focal bony lesions, acute fractures or dislocation. Degenerative changes of the spine. IMPRESSION: No evidence of acute aneurysm, dissection, or intramural hematoma. Moderate bowel wall thickening of the colon most prominent in the descending and rectosigmoid colon. This may represent infectious or inflammatory colitis. Electronically Signed by:BUSTER JANE MD Date & Time: 12/27/24 1029 Dictated by: BUSTER JANE MD Dictation date and time: 12/27/24 0945 Primary Care Provider: NO PRIMARY CARE PROVIDER cc: CELIO CONTEH DO ~ Medical Decision Making Differential Dx:Considerations: Include: chest wall pain, CHF, esophageal reflux/spasm, gastritis, myocardial infarction, pericarditis, pancreatitis, pneumothorax, pulmonary embolus Departure Disposition: HOME / SELF CARE / HOMELESS Impression: Primary Impression: Chest pain at rest Additional Impressions: nausea Abdominal pain IBS (irritable bowel syndrome) Discharge Instructions: Abdominal Pain, Adult, Gastroesophageal Reflux Scan, Nonspecific Chest Pain, Adult Additional Instructions: Please follow-up with your parquetry layer as soon as possible, you should not take the Bentyl and Linzess at the same time as I would be fearful that if there is a side effect you would not know which medication cause this. Please use one or the other see if it helps improving your pain, if you have bloody stools, fever or worsening symptoms please return to the ER, Zofran was also sent to your pharmacy for nausea and vomiting. Referrals: NO PRIMARY CARE PROVIDER (PCP) Prescriptions Ondansetron 8mg ODT (Ondansetron Odt) 8 Mg Tab.rapdis 1 TAB PO Q6H for nausea/vomiting for 3 Days, #12 TAB 0 Refills Prov: CELIO CONTEH DO 12/27/24 Dicyclomine Hcl* (Bentyl*) 10 Mg Capsule 1 CAP PO Q6H PRN for pain, #20 CAP Prov: CELIO CONTEH DO 12/27/24 Education Educated: Patient, Family Educated regarding: diagnosis, treatment, prognosis Signature Scribe Signature: None Attestation: Dictated by myself CELIO CONTEH DO Dec 27, 2024 10:25
--- NOTE | 2024-12-27 10:32 | RADIOLOGY REPORT ---
Procedure: CT CTA ABDOMEN PELVIS HISTORY: pain ischemic bowel Comparison Study: CT CTA ABDOMEN PELVIS on DOS: 11/03/24, CT CT ABDOMEN PELVIS W/ IV CONTRAST on DOS: 11/03/24, CT CTA ABDOMEN PELVIS on DOS: 12/27/23, CT CT ABDOMEN PELVIS on DOS: 12/24/23, CT CT ABDOMEN PE LVIS on DOS: 07/11/23 Exam Date:12/27/2024 09:58 AM TECHNIQUE: CTA scanner volumetric data acquisition of abdomen and pelvis was obtained following intravenous admi nistration of intravenous contrast without any reported adverse effects. Axial images were reconstru cted and additional sagittal and coronal images were reformatted. arterial phase imaging were perfor med. Postprocessing was also performed on a Separate workstation. 3D images were performed on a dedicated workstation and reviewed for reporting. Radiation Dose : CT Dose: CTDI volume is 11.5 mGy. Dose-length product is 498.4 mGy*cm FINDINGS: Lung Bases: No acute or significant lung base finding. Normal heart size. No pleural or pericardial effusion. Liver: The liver is normal in size. No focal lesions. Normal hepatic vascular enhancement. Gallbladder and Biliary Tree: Gallbladder is surgically absent. Spleen: Unremarkable Pancreas: The pancreas is normal in appearance without focal lesions or abnormal enhancement. Adrenal Glands: Unremarkable Kidneys: Kidneys demonstrate normal symmetric enhancement without focal lesions, calculi or hydroneph rosis. Bladder: Unremarkable Bowel: The stomach is grossly normal in appearance. Diverticulosis. Moderate volume colonic stool. Normal appendix is visualized in the right lower quadrant without findings of appendicitis. Ascites: Absent Lymphadenopathy: No mesenteric, retroperitoneal or periportal lymphadenopathy. Abdominal Wall and Mesentery: Unremarkable. Vasculature: The visualized abdominal aorta is normal in size and caliber. Abdominal and pelvic vess els demonstrate normal enhancement. Pelvic Organs: The uterus is surgically absent. Musculoskeletal: No aggressive focal bony lesions, acute fractures or dislocation. Degenerative saucedo es of the spine. IMPRESSION: No evidence of acute aneurysm, dissection, or intramural hematoma. Moderate bowel wall thickening of the colon most prominent in the descending and rectosigmoid colon. This may represent infectious or inflammatory colitis.
--- NOTE | 2024-12-27 11:17 | RADIOLOGY REPORT ---
EXAM: DI CHEST,SINGLE VIEW HISTORY: CP COMPARISON: DI CHEST,SINGLE VIEW on DOS: 08/07/23, DI CHEST,SINGLE VIEW on DOS: 07/10/23, CT scan of t he chest dated 08/08/2023. TECHNIQUE: Portable upright AP view of the chest was performed. FINDINGS: No pneumothorax, consolidative infiltrates, or pulmonary edema. Emphysematous changes are better iraj acterized on prior CT scan. The heart is not enlarged.. The aortic arch is calcific. There is moder ate thoracic degenerative disc disease. There is slight midthoracic dextroscoliosis. IMPRESSION: Emphysema without evidence of acute intrathoracic process.
[2024-12-27] MEDS ORDERED: DICY10CA88 PO (11:48)
[2024-12-27] MEDS ORDERED: ONDA-245 PO (11:49)
[2024-12-27 12:36] LABS: BILIRUBIN,URINE NEGATIVE (Neg); CLARITY,URINE CLEAR (Clear); COLOR,URINE YELLOW (Yellow); GLUCOSE, URINE NEGATIVE (Neg); KETONES,URINE TRACE mg/dl (Neg); LEUKOCYTE ESTERASE ,URINE NEGATIVE (Neg); NITRITES, URINE NEGATIVE (Neg); OCCULT BLOOD,URINE NEGATIVE (Neg); PROTEIN,URINE NEGATIVE (Neg); UROBILINOGEN,URINE 0.2 E.U/dL (0.2-1.0)
[2024-12-27 12:38] LABS: UA COLLECTION TYPE CLN CATCH MIDSTREAM
[2024-12-27 13:19] VITALS: BP 139/88; PULSE 59; RESP 14; O2SAT 100
== END 2024-12-27 12:45 | disposition home or self-care (01) ==
LOC: ER 08:26
DX: R07.89 Other chest pain (principal); R10.9 Unspecified abdominal pain; K58.9 Irritable bowel syndrome, unspecified; E78.00 Pure hypercholesterolemia, unspecified; R06.02 Shortness of breath; I25.2 Old myocardial infarction; J43.9 Emphysema, unspecified; Z88.0 Allergy status to penicillin; Z88.5 Allergy status to narcotic agent; Z88.8 Allergy status to other drugs, medicaments and biological substances; Z90.49 Acquired absence of other specified parts of digestive tract; Z90.710 Acquired absence of both cervix and uterus
CPT/HCPCS: 36415; 71045; 74174; 80048; 81003; 83605; 83880; 84484; 85025; 93005; 96374; 99285; J2405; J7030; J7040; Q9967

== ENCOUNTER 2025-03-06 08:16 | Emergency (ER) | payer MEDICARE, OTHER ==
[~2025-03-06] VITALS: Ht 160 cm; Wt 55.2 kg
[~2025-03-06 08:16] MED LIST changes: +ONDA-245 PO
[2025-03-06 08:23] VITALS: TEMP 98.6
[2025-03-06] MEDS: guaiFENesin/DM 10ml UD oral syrup PO ONE (09:54)
--- NOTE | 2025-03-06 10:30 | RADIOLOGY REPORT ---
EXAM: DI CHEST,SINGLE VIEW HISTORY: COVID, cough, shortness of breath COMPARISON: DI CHEST,SINGLE VIEW on DOS: 12/27/24, CT CTA CHEST CT ABD PELVIS on DOS: 08/08/23, DI CHES T,SINGLE VIEW on DOS: 08/07/23, DI CHEST,SINGLE VIEW on DOS: 07/10/23 TECHNIQUE: Portable upright AP view of the chest was performed. FINDINGS: No pneumothorax, consolidative infiltrates, or pulmonary edema. There is central peribronchial thicke aparna. There are tracheobronchial calcifications. Emphysematous changes are better characterized on p rior CT scan. The heart is not enlarged. The aortic arch is calcific. There is moderate thoracic deg enerative disc disease. There is slight midthoracic dextroscoliosis. IMPRESSION: Emphysema and reactive airways disease. The lungs are otherwise clear.
--- NOTE | 2025-03-06 11:03 | Physician Documentation ---
History of Present Illness ~ Chief Complaint: Cold, cough & congestion Stated Complaint: COVID POSITIVE Time Seen by MD: 09:35 [facility] 79-[facility] presenting with 2 days of cough and cold symptoms. She tells me that her recently tested positive for COVID-19 and was treated for this. Over the past 2 days she has also developed similar symptoms. She reports having subjective fevers, body aches, congestion, sore throat, nonproductive cough, and mild shortness of breath. She denies any significant vomiting or diarrhea. No chest pain. No leg pain or swelling. She denies any history of lung problems. Medication Reconciliation Allergies: Coded Allergies: Erythromycin Lactobionate (Verified Allergy, Unknown, 03/06/25) Penicillins (Verified Allergy, Unknown, 03/06/25) codeine (Verified Allergy, Unknown, 03/06/25) TOLERATED HYDROMORPHONE 10/2024 Scheduled Cetirizine Hcl (Zyrtec), 1 CAP PO DAILY, (Reported) Ondansetron 8mg ODT (Ondansetron Odt), 1 TAB PO Q6H Pantoprazole Sodium (Pantoprazole Sodium), 40 MG PO BKF Venlafaxine Hcl (Venlafaxine Hcl Er), 1 CAP PO DAILY, (Reported) Scheduled PRN Metoclopramide HCl (Reglan), 1 TAB PO Q8H PRN for nausea/vomiting Ondansetron Hcl (Zofran), 1 TABLET PO Q8H PRN for NAUSEA Past Medical History Past Medical History: Migraine, High Cholesterol, Pancreatitis Past Surgical History: cholecystectomy, hysterectomy Patient History: FH: lung cancer (Sister) Alcohol Use: None Drug Use: none Lives with: Spouse Lives In: Home Occupation: retired Review of Systems Constitutional: Reports: fever Respiratory: Reports: cough, shortness of breath Gastrointestinal: Reports: nausea; Denies: abdominal pain, vomiting, diarrhea Physical Exam Vital Signs: Temperature: 98.6, Source: Temporal, Heart Rate: 82, Respiratory Rate: 16, BP: 133/67, Pulse Oximetry: 99, Weight: 55.200 Oxygen Flow Rate: 0 Physical Exam General: This is a nontoxic-appearing elderly woman sitting calmly in bed, partner at bedside HEENT: Atraumatic, oropharynx is moist, no significant posterior oropharyngeal erythema, unilateral swelling or white exudate Neck: Mild tender lymphadenopathy in the right anterior chain, otherwise no swelling Heart: Regular rate and rhythm, normal-appearing peripheral perfusion Lungs: Mild coarse breath sounds bilateral, normal work of breathing, normal oxygen saturation on room air Abdomen: Soft, nondistended, nontender all quadrants Extremities: Warm and well-perfused, no edema Neuro: Alert and oriented Psychiatric: Calm and cooperative with exam Progress Results/Orders Results/Orders Orders - NIDHI CARPIO MD Chest,Single View (03/06/25 10:02) Completed Orders - NIDHI CARPIO MD Acetaminophen 325mg Tablet (Tylenol Tabl (03/06/25 09:45) Guaifenesin/Dm Oral Syrup (Robitussin Dm (03/06/25 09:45) Chest,Single View (03/06/25 10:02) Vital Signs 03/06/25 03/06/25 03/06/25 03/06/25 08:23 10:00 10:02 11:21 Temp 98.6 Pulse 71 82 64 Resp 18 16 16 16 B/P (MAP) 139/64 133/67 (89) 133/63 Pulse Ox 100 99 99 O2 Flow Rate 0 0 EKG/XRAY/CT/US/VASC/MRI Chest X-Ray : Additional Comments I personally reviewed the x-ray, and it shows: No focal consolidation to suggest pneumonia, no mediastinal widening, no pulmonary edema Medical Decision Making Differential Diagnosis The patient presents with viral type symptoms, and had a home COVID test that was positive. She has findings consistent with the COVID-19 infection. Chest x-ray without pneumonia. She is not hypoxic. She does not appear dehydrated. She has no other evidence of dangerous complication. I did discuss the risks and benefits of Paxlovid, after which she declined treatment with this. She will be discharged with symptomatic treatment and strict return precautions. Departure Time of Disposition: 11:02 Disposition: 01 HOME / SELF CARE / HOMELESS Impression: Primary Impression: COVID-19 Condition: Stable Discharge Instructions: Viral Respiratory Infection Referrals: NO PRIMARY CARE PROVIDER (PCP) Education Educated: Patient, Family Educated regarding: diagnosis, need for follow up Signature Scribe Signature: na Attestation: NIDHI Medina MD Mar 06, 2025 11:03
[2025-03-06 11:21] VITALS: BP 133/63; PULSE 64; RESP 16; O2SAT 99
== END 2025-03-06 11:22 | disposition home or self-care (01) ==
LOC: ER 08:17
DX: U07.1 COVID-19 (principal); R05.9 Cough, unspecified; R06.02 Shortness of breath; R50.9 Fever, unspecified; E78.00 Pure hypercholesterolemia, unspecified; Z88.0 Allergy status to penicillin; Z88.5 Allergy status to narcotic agent; Z88.8 Allergy status to other drugs, medicaments and biological substances; Z90.49 Acquired absence of other specified parts of digestive tract; Z90.710 Acquired absence of both cervix and uterus
CPT/HCPCS: 71045; 99283

== ENCOUNTER 2025-03-08 14:53 | Emergency (ER) | payer MEDICARE, OTHER ==
[~2025-03-08] VITALS: Ht 160 cm; Wt 55.9 kg
--- NOTE | 2025-03-08 15:06 | Physician Documentation ---
History of Present Illness General Stated Complaint: ABD PAIN Time Seen by MD: 15:03 Primary Medical Doctor: chris schneider medical History of Present Illness Initial Comments The patient is an 79-year-old female with a history of chronic abdominal pain who presents to the emergency room with right-sided abdominal pain. Patient states she has been sick with COVID over last several days she has been having cough congestion and sore throat she tested positive for COVID in the emergency room several days ago. The patient states that over the last day she has had epigastric and right upper abdominal pain she states she has had some dysuria as well and some subjective fevers. Patient's complains of some nausea she denies any diarrhea. She states her gallbladder is out. She has been worked up for chronic abdominal pain in the past and in his been on gabapentin in the past for her abdominal pain. Her symptoms are mild to moderate and persistent Medication Reconciliation Allergies: Coded Allergies: Erythromycin Lactobionate (Verified Allergy, Unknown, 03/08/25) Penicillins (Verified Allergy, Unknown, 03/06/25) codeine (Verified Allergy, Unknown, 03/06/25) TOLERATED HYDROMORPHONE 10/2024 Scheduled Cetirizine Hcl (Zyrtec), 1 CAP PO DAILY, (Reported) Ondansetron 8mg ODT (Ondansetron Odt), 1 TAB PO Q6H Pantoprazole Sodium (Pantoprazole Sodium), 40 MG PO BKF Venlafaxine Hcl (Venlafaxine Hcl Er), 1 CAP PO DAILY, (Reported) Scheduled PRN Metoclopramide HCl (Reglan), 1 TAB PO Q8H PRN for nausea/vomiting Ondansetron Hcl (Zofran), 1 TABLET PO Q8H PRN for NAUSEA Past Medical History Past Medical History: Migraine, High Cholesterol, Pancreatitis Past Surgical History: cholecystectomy, hysterectomy Smoking: Quit greater than 1 year Alcohol Use: None Drug Use: none Lives with: Spouse Lives In: Home Occupation: retired Physical Exam Physical Exam Physical Exam VITALS: Reviewed and as above. GENERAL: Alert, no apparent distress. HEENT: Normocephalic, atraumatic, PERRL, EOMI, dry mucosa, no erythema RESPIRATORY: Lungs clear, normal breath sounds, no respiratory distress. CHEST: No accessory muscle use, no retractions CV: Regular rate, rhythm, no edema, no murmur, No: JVD GI: RUQ tenderness, bowels sounds present, no rebound, guarding, or rigidity BACK: No CVA tenderness, or swelling MUSCULOSKELETAL No deformities, no edema SKIN: Warm and dry, no rash NEURO: Oriented x4, No motor or sensory deficit PSYCH: Normal mood and affect, no agitation Progress Results/Orders Results/Orders Completed Orders - TONIE MILLER MD Cbc/Diff (03/08/25 15:16) BMP (03/08/25 15:16) Lipase (03/08/25 15:16) CMP (03/08/25 15:16) Procalcitonin (03/08/25 15:34) Normal Saline 1000ml (0.9% Sodium Chlori (03/08/25 15:50) Ondansetron Inj. (Zofran 4mg/2ml Vial) (03/08/25 15:50) Acetaminophen 1,000mg/100ml Iv (Ofirmev (03/08/25 15:48) Ua W/Microscopic, Cult If Ind (03/08/25 16:55) Vital Signs 03/08/25 03/08/25 03/08/25 03/08/25 15:05 15:16 15:24 16:33 Temp 98.7 98.7 Pulse 64 60 59 Resp 16 16 16 16 B/P (MAP) 151/50 151/5 (53) 129/53 (78) Pulse Ox 99 99 99 O2 Flow Rate 0 0 0 03/08/25 18:13 Pulse 60 Resp 16 B/P (MAP) 159/75 Pulse Ox 94 Laboratory Tests Test 03/08/25 15:08 03/08/25 16:55 White Blood Count 4.7 Red Blood Count 4.26 Hemoglobin 12.8 Hematocrit 37.4 Mean Corpuscular Volume 87.8 Mean Corpuscular Hemoglobin 30.1 Mean Corpuscular Hemoglobin Concent 34.3 Red Cell Distribution Width 14.0 Platelet Count 154 Mean Platelet Volume 7.4 Neutrophils (%) (Auto) 55.0 Lymphocytes (%) (Auto) 30.4 Monocytes (%) (Auto) 14.1 H Eosinophils (%) (Auto) 0.3 Basophils (%) (Auto) 0.2 Neutrophils # (Auto) 2.6 Lymphocytes # (Auto) 1.4 Monocytes # (Auto) 0.7 Eosinophils # (Auto) 0.0 Basophils # (Auto) 0.0 CBC Comment Sodium Level 138 Potassium Level 4.4 Chloride Level 103 Carbon Dioxide Level 25.6 Anion Gap 9 Blood Urea Nitrogen 16 Creatinine 1.40 H Estimated GFR/1.73 m2 36 BUN/Creatinine Ratio 11.4 Glucose Level 106 H Calcium Level 9.2 Total Bilirubin 0.4 Aspartate Amino Transf (AST/SGOT) 24 Alanine Aminotransferase (ALT/SGPT) 22 Alkaline Phosphatase 86 Total Protein 7.7 Albumin 3.7 Globulin 4.0 Albumin/Globulin Ratio 0.9 L Lipase 53 Procalcitonin < 0.05 Chemistry Comments Urine Specimen Description Cln catch midstream Urine Color Yellow Urine Clarity Clear Urine pH 5.5 Urine Specific [place] 1.025 Urine Protein Trace Urine Glucose (UA) Negative Urine Ketones Trace H Urine Occult Blood Negative Urine Nitrite Negative Urine Bilirubin Negative Urine Urobilinogen 0.2 Urine Leukocyte Esterase Negative Urine RBC None seen Urine WBC None seen Urine Squamous Epithelial Cells Few Urine Bacteria None seen Urine Mucus Few Urine Culture Indicated Not ind Volume Urine Centrifuged 10 ml Urine Comment Medical Decision Making Findings Patient with a long history of chronic abdominal pain patient has a benign exam the patient's labs have been reviewed previous hospitalizations have been reviewed the patient will be discharged with instructions to follow up as an outpatient. Patient's pulse oximetry was interpreted as adequate normal prior hospitalizations have been reviewed the patient was given Zofran and a dose of IV acetaminophen with some improvement the patient will be discharged Departure Disposition: 01 HOME / SELF CARE / HOMELESS Impression: Primary Impression: Abdominal pain Qualified Codes: R10.11 - Right upper quadrant pain Discharge Instructions: Abdominal Pain (Nonspecific) Additional Instructions: Drink plenty of fluids follow up with your healthcare providers soon as pos sible. Return for significant worsening of your symptoms. Referrals: NO PRIMARY CARE PROVIDER (PCP) Signature Scribe Signature: no scribe Attestation: The note accurately reflects work and decisions made by me.Tonie Miller MD 03/10/25 05:51 TONIE MILLER MD Mar 08, 2025 15:06
[2025-03-08 15:24] LABS: MEAN PLATELET VOLUME 7.4 FL (7.4-10.4); RED CELL DISTRIBUTION WIDTH 14.0 % (11.5-14.5)
[2025-03-08 15:52] LABS: CREATININE 1.40 MG/DL (0.40-0.90); TOTAL CARBON DIOXIDE 25.6 MMOL/L (24-32); eCRCL 26 ML/MIN; eGFR 36 ML/MIN
[2025-03-08] MEDS: normal saline 1000ml 1,000 ML IV ONE (16:25)
[2025-03-08] MEDS: acetaminophen 1,000mg/100ml IV 100 ML IV STA (16:25)
[2025-03-08] MEDS: ondansetron/PF 4mg/2ml inj IV ONE (16:25)
[2025-03-08 16:33] VITALS: TEMP 98.7
[2025-03-08 17:10] LABS: LEUKOCYTE ESTERASE ,URINE NEGATIVE (Neg); NITRITES, URINE NEGATIVE (Neg); OCCULT BLOOD,URINE NEGATIVE (Neg)
[2025-03-08 17:15] LABS: UA COLLECTION TYPE CLN CATCH MIDSTREAM
[2025-03-08 17:16] LABS: MUCUS STRANDS FEW /LPF (Neg); SQUAMOUS EPITHELIAL CELL,UR FEW /LPF (FEW)
[2025-03-08 18:13] VITALS: BP 159/75; PULSE 60; RESP 16; O2SAT 94
== END 2025-03-08 18:15 | disposition home or self-care (01) ==
LOC: ER 14:54
DX: R10.11 Right upper quadrant pain (principal); R05.9 Cough, unspecified; E78.00 Pure hypercholesterolemia, unspecified; Z88.0 Allergy status to penicillin; Z88.5 Allergy status to narcotic agent; Z88.8 Allergy status to other drugs, medicaments and biological substances; Z90.49 Acquired absence of other specified parts of digestive tract; Z90.710 Acquired absence of both cervix and uterus
CPT/HCPCS: 36415; 80053; 81001; 83690; 84145; 85025; 96361; 96374; 96375; 99284; J0131; J2405; J7030